=== PATIENT | male | born 1960 | race Hispanic/Latino ===

== ENCOUNTER 2018-01-19 13:00 | Emergency (ER) | payer MEDICAID ==
[2018-01-19 13:03] VITALS: BP 126/62; PULSE 72; RESP 18; TEMP 97.8; O2SAT 98; BMI 17.9
--- NOTE | 2018-01-19 13:31 | ED PDOC ---
Arrival/HPI - General Chief Complaint: Psychiatric Evaluation Time Seen by Provider: 01/19/18 13:04 Historian: Patient - History of Present Illness Narrative History of Present Illness (Text): 01/19/18 13:10 Ernesto Romero is a 57 year old male who presents to the emergency department requesting a psychiatric evaluation today. Patient states that he has been trying to get himself evaluated at a mental health clinic for clinical depression but cannot get anywhere. On the phone, patient asked if he has to kill himself to get the care he needs, prompting police and an ambulance sent to his house to bring him to the emergency department. In emergency department, patient refuses to be evaluated, change in dressing gowns, and be treated by medications. Patient denies any suicidal ideation, homicidal ideation, or any other complaints at this time. Time/Duration: Prior to Arrival Symptom Onset: Gradual Symptom Course: Unchanged Activities at Onset: Light Past Medical History - Provider Review Nursing Documentation Reviewed: Yes - Psychiatric Hx Substance Use: No - Anesthesia Hx Anesthesia: No Family/Social History - Physician Review Nursing Documentation Reviewed: Yes Family/Social History: No Known Family HX Smoking Status: Light Smoker < 10 Cigarettes Daily Hx Alcohol Use: No Hx Substance Use: No Review of Systems - Review of Systems Systems not reviewed;Unavailable: Uncooperative Physical Exam - Physical Exam Narrative Physical Exam (Text): Patient refuses to be evaluated. Vital Signs Reviewed: Yes Vital Signs Temp Pulse Resp BP Pulse Ox 01/19/18 13:02 97.8 F 72 18 126/62 98 Temperature: Afebrile Blood Pressure: Normal Pulse: Regular Respiratory Rate: Normal Pain Distress: None Mental Status: Positive for: Alert and Oriented X 3 Medical Decision Making ED Course and Treatment: 01/19/18 13:34 Impression: 57 year old male requesting a psychiatric evaluation for clinical depression. Progress Notes: Leaving Against Medical Advice (AMA): The patient is choosing to leave against medical advice. I have personally explained to the patient that choosing to do so may result in permanent bodily harm or . I have discussed at great length that without further evaluation and monitoring there may be unforeseen circumstances and/or deterioration causing permanent bodily harm or as a result of their choice. The patient is alert, oriented, and shows the mental capacity to make clear decisions regarding the patients health care at this time. The patient continues to wish to leave against medical advice. In light of the patients decision to leave against medical advice, follow-up has been arranged and the patient is aware of the importance to following up as instructed. The patient has been advised that they should return to the emergency room immediately if they change their mind at any time, or if their condition begins to change or worsen in any way. - Scribe Statement The provider has reviewed the documentation as recorded by the Carlosibsteven Doll Provider Scribe Attestation: All medical record entries made by the Scribe were at my direction and personally dictated by me. I have reviewed the chart and agree that the record accurately reflects my personal performance of the history, physical exam, medical decision making, and the department course for this patient. I have also personally directed, reviewed, and agree with the discharge instructions and disposition. Disposition/Present on Arrival - Present on Arrival Any Indicators Present on Arrival: No History of DVT/PE: No History of Uncontrolled Diabetes: No Urinary Catheter: No History of Decub. Ulcer: No History Surgical Site Infection Following: None - Disposition Have Diagnosis and Disposition been Completed?: Yes Diagnosis: Depression Disposition: AGAINST MEDICAL ADVICE Disposition Time: 13:35 Patient Plan: Discharge, Other (AMA) Condition: GOOD Discharge Instructions (ExitCare): Depression, Adult (DC) Forms: [employer] (Korean)
== END 2018-01-19 13:55 | disposition left against medical advice (07) ==
LOC: ED 13:00
DX: F32.9 Major depressive disorder, single episode, unspecified (principal)

== ENCOUNTER 2018-02-22 11:37 | Emergency (ER) | payer MEDICAID ==
--- NOTE | 2018-02-22 11:56 | ED PDOC ---
Arrival/HPI - General Time Seen by Provider: 02/22/18 11:53 Historian: Patient - History of Present Illness Narrative History of Present Illness (Text): 02/22/18 11:53 57 year old male, whose past medical history includes depression, who presents to the emergency department brought in by EMS for suicidal ideation. Patient states he was at the [facility] to get signed up for group therapy, when he admitted to past suicidal ideation. The [facility] called EMS. Patient now reporting that he is not suicidal. Denies homicidal ideation. Patient denies somatic complaints. Time/Duration: Prior to Arrival Context: Other ([facility]) Past Medical History - Provider Review Nursing Documentation Reviewed: Yes - Psychiatric Hx Substance Use: No - Anesthesia Hx Anesthesia: No Family/Social History - Physician Review Nursing Documentation Reviewed: Yes Family/Social History: Unknown Family HX Smoking Status: Light Smoker < 10 Cigarettes Daily Hx Alcohol Use: No Hx Substance Use: No Allergies/Home Meds Allergies/Adverse Reactions: Allergies No Known Allergies Allergy (Verified 02/22/18 11:58) Home Medications: Home Meds Medication Instructions Recorded Confirmed DiphenhydrAMINE [Benadryl] 25 mg PO DAILY 02/22/18 02/22/18 Review of Systems - Physician Review All systems were reviewed & negative as marked: Yes - Review of Systems Constitutional: Normal Eyes: Normal ENT: Normal Respiratory: Normal. absent: SOB, Cough Cardiovascular: Normal. absent: Chest Pain Gastrointestinal: Normal. absent: Abdominal Pain, Diarrhea, Nausea, Vomiting Genitourinary Male: Normal. absent: Dysuria, Frequency, Hematuria, Urinary Output Changes Musculoskeletal: Normal. absent: Back Pain, Neck Pain Skin: Normal. absent: Rash Neurological: Normal. absent: Headache, Dizziness Endocrine: Normal Hemo/Lymphatic: Normal Psychiatric: Normal Physical Exam Vital Signs Temp Pulse Resp BP Pulse Ox 02/22/18 13:42 98.9 F 88 18 136/87 99 - Systems Exam Head: Present: Atraumatic, Normocephalic Pupils: Present: PERRL Extroacular Muscles: Present: EOMI Conjunctiva: Present: Normal Mouth: Present: Moist Mucous Membranes Neck: Present: Normal Range of Motion. No: Meningeal Signs, MIDLINE TENDERNESS , Paraspinal Tenderness Respiratory/Chest: Present: Clear to Auscultation, Good Air Exchange. No: Respiratory Distress, Accessory Muscle Use, Wheezes, Decreased Breath Sounds, Rales Cardiovascular: Present: Regular Rate and Rhythm, Normal S1, S2. No: Murmurs Abdomen: No: Tenderness, Distention, Peritoneal Signs Back: Present: Normal Inspection. No: CVA Tenderness, Midline Tenderness, Paraspinal Tenderness Upper Extremity: Present: Normal Inspection. No: Cyanosis, Edema Lower Extremity: Present: Normal Inspection. No: Edema, CALF TENDERNESS Neurological: Present: GCS=15, CN II-XII Intact, Speech Normal Skin: Present: Warm, Dry, Normal Color. No: Rashes Psychiatric: Present: Alert, Oriented x 3, Normal Insight, Normal Concentration Medical Decision Making ED Course and Treatment: 02/22/18 11:57 Impression: 57 year old male presents to the emergency department brought in by EMS for medical clearance. Plan: -- Labs -- Urinalysis -- CXR -- Reassess and disposition Progress Notes: 02/22/18 12:53 Patient evaluated by PES worker. Recommending voluntary admission which patient is refusing. Patient now to be screened by [facility] for involuntary commitment. 02/22/18 13:29 Chest X-ray reviewed, shows: LUNGS: No active pulmonary disease. PLEURA: No significant pleural effusion identified, no pneumothorax apparent. CARDIOVASCULAR: Normal. OSSEOUS STRUCTURES: No significant abnormalities. VISUALIZED UPPER ABDOMEN: Normal. OTHER FINDINGS: None. IMPRESSION: No active disease. 02/22/18 14:28 EKG shows sinus bradycardia at 53bpm with RAD. Labs reviewed. Patient medically cleared for psychiatric evaluation 02/22/18 18:37 Patient continues to be resting comfortably on 1:1 monitoring. He is still pending [facility] screen. Will sign out to Dr. Henry to follow-up their recommendations. - Lab Interpretations Lab Results: 02/22/18 14:08 02/22/18 14:08 Lab Results 02/22/18 14:08: Alcohol, Quantitative < 10 02/22/18 14:08: Sodium 143, Potassium 4.1, Chloride 101, Carbon Dioxide 29, Anion Gap 17, BUN 16, Creatinine 1.0, Est GFR ( Amer) > 60, Est GFR (Non- Af Amer) > 60, Random Glucose 88, Calcium 10.0, Total Bilirubin 1.3, AST 34, ALT 41, Alkaline Phosphatase 57, Total Protein 8.0, Albumin 4.9 H, Globulin 3.2 , Albumin/Globulin Ratio 1.5 02/22/18 14:08: WBC 12.5 H, RBC 4.95, Hgb 16.0, Hct 44.8, MCV 90.5, MCH 32.3, MCHC 35.7, RDW 12.4, Plt Count 205, MPV 10.0, Gran % 77.3 H, Lymph % (Auto) 15.2 L, [place] % (Auto) 4.3, Eos % (Auto) 2.8, Baso % (Auto) 0.4, Gran # 9.63 H, Lymph # (Auto) 1.9, [place] # (Auto) 0.5, Eos # (Auto) 0.4, Baso # (Auto) 0.05 02/22/18 14:05: Urine Opiates Screen Negative, Urine Methadone Screen Negative, Ur Barbiturates Screen Negative, Ur Phencyclidine Scrn Negative, Ur Amphetamines Screen Negative, U Benzodiazepines Scrn Negative, U Oth Cocaine Metabols Negative, U Cannabinoids Screen Negative 02/22/18 14:05: Urine Color Yellow, Urine Appearance Clear, Urine pH 7.5, Ur Specific [place] 1.015, Urine Protein Negative, Urine Glucose (UA) Negative, Urine Ketones Trace H, Urine Blood Negative, Urine Nitrate Negative, Urine Bilirubin Negative, Urine Urobilinogen 0.2, Ur Leukocyte Esterase Negative - RAD Interpretation Radiology Orders: 02/22/18 12:46 CHEST PORTABLE [RAD] Stat - Scribe Statement The provider has reviewed the documentation as recorded by the Carlosibsteven Francisco All medical record entries made by the Carlosibsteven were at my direction and personally dictated by me. I have reviewed the chart and agree that the record accurately reflects my personal performance of the history, physical exam, medical decision making, and the department course for this patient. I have also personally directed, reviewed, and agree with the discharge instructions and disposition. Disposition/Present on Arrival - Present on Arrival Any Indicators Present on Arrival: No History of DVT/PE: No History of Uncontrolled Diabetes: No Urinary Catheter: No History Surgical Site Infection Following: None - Disposition Have Diagnosis and Disposition been Completed?: Yes Diagnosis: Depression Disposition Time: 18:45 Condition: FAIR Referrals: Loraine Man, [Primary Care Provider] - Follow up with primary
[2018-02-22 11:58] VITALS: BMI 19.5
--- NOTE | 2018-02-22 13:27 | RAD ---
HISTORY: psych COMPARISON: No prior. FINDINGS: LUNGS: No active pulmonary disease. PLEURA: No significant pleural effusion identified, no pneumothorax apparent. CARDIOVASCULAR: Normal. OSSEOUS STRUCTURES: No significant abnormalities. VISUALIZED UPPER ABDOMEN: Normal. OTHER FINDINGS: None. IMPRESSION: No active disease.
[2018-02-22 14:10] LABS: PH,URINE 7.5 (4.7-8.0); URINE BILIRUBIN NEGATIVE (NEGATIVE); URINE BLOOD NEGATIVE (NEGATIVE); URINE GLUCOSE (UA) NEGATIVE (NEGATIVE); URINE LEUKOCYTE ESTERASE NEGATIVE Leu/uL (NEGATIVE); URINE PROTEIN NEGATIVE mg/dL (<30 mg/dL); URINE UROBILINOGEN 0.2 E.U./dL (<1 E.U./dL)
[2018-02-22 14:12] LABS: URINE APPEARANCE CLEAR (CLEAR); URINE COLOR YELLOW (YELLOW)
[2018-02-22 14:15] LABS: BASO # 0.05 K/mm3 (0.0-2.0); BASO % 0.4 % (0.0-3.0); EOS # 0.4 (0.0-0.7); EOS % 2.8 % (1.5-5.0); GRAN # 9.63 (1.4-6.5); GRAN % 77.3 % (50.0-68.0); LYMPH # 1.9 (1.2-3.4); LYMPH % 15.2 % (22.0-35.0); MEAN CELL VOLUME 90.5 fl (80.0-105.0); MEAN CORPUSCULAR HEMOGLOBIN 32.3 pg (25.0-35.0); MEAN CORPUSCULAR HGB CONC 35.7 g/dl (31.0-37.0); MONO # 0.5 (0.1-0.6); MONO % 4.3 % (1.0-6.0); RBC 4.95 10^6/uL (3.5-6.1); RED CELL DISTRIBUTION WIDTH 12.4 % (11.5-14.5); WHITE BLOOD COUNT 12.5 10^3/ul (4.5-11.0)
[2018-02-22 14:24] LABS: ALB/GLOB RATIO 1.5 (1.1-1.8); ALBUMIN 4.9 g/dL (3.0-4.8); ALT/SGPT 41 U/L (7-56); AST/SGOT 34 U/L (17-59); BLOOD UREA NITROGEN 16 mg/dL (7-21); GFR AFRICAN-AMERICAN > 60; GFR NON-AFRICAN AMERICAN > 60
[2018-02-22 14:33] LABS: BARBITURATES, UR NEGATIVE (NEGATIVE); BENZODIAZEPINES, UR NEGATIVE (NEGATIVE); OPIATES, UR NEGATIVE (NEGATIVE); PHENCYCLIDINE, UR NEGATIVE (NEGATIVE)
[2018-02-22 18:48] VITALS: TEMP 98.1
--- NOTE | 2018-02-22 19:02 | ED PDOC ---
Physical Exam Vital Signs Reviewed: Yes Vital Signs Temp Pulse Resp BP Pulse Ox 02/22/18 18:47 98.1 F 82 19 99 02/22/18 13:42 98.9 F 88 18 136/87 99 Temperature: Afebrile Blood Pressure: Normal Pulse: Regular Respiratory Rate: Normal Appearance: Positive for: Well-Appearing Pain Distress: None Mental Status: Positive for: Alert and Oriented X 3 Medical Decision Making ED Course and Treatment: 02/22/18 19:01 Patient endorsed to me by Dr. Alvarez. Patient to have follow-up with [facility] screening. 02/22/18 19:27 [facility] came to evaluate patient. They do not feel like the patient qualifies for admission. Spoke to PES and they will reevaluate and disposition 02/22/18 19:33 TIARA Carrasco, came to evaluate patient and discussed case with Psychiatrist. They agreed that patient can be cleared by Psych. Patient if comfortable and currently not suicidal or homocidal. He will follow up with the [facility] and he understands that he's always welcome back with any concerns he may have. - Lab Interpretations Lab Results: 02/22/18 14:08 02/22/18 14:08 Lab Results 02/22/18 14:08: Alcohol, Quantitative < 10 02/22/18 14:08: Sodium 143, Potassium 4.1, Chloride 101, Carbon Dioxide 29, Anion Gap 17, BUN 16, Creatinine 1.0, Est GFR ( Amer) > 60, Est GFR (Non- Af Amer) > 60, Random Glucose 88, Calcium 10.0, Total Bilirubin 1.3, AST 34, ALT 41, Alkaline Phosphatase 57, Total Protein 8.0, Albumin 4.9 H, Globulin 3.2 , Albumin/Globulin Ratio 1.5 02/22/18 14:08: WBC 12.5 H, RBC 4.95, Hgb 16.0, Hct 44.8, MCV 90.5, MCH 32.3, MCHC 35.7, RDW 12.4, Plt Count 205, MPV 10.0, Gran % 77.3 H, Lymph % (Auto) 15.2 L, [place] % (Auto) 4.3, Eos % (Auto) 2.8, Baso % (Auto) 0.4, Gran # 9.63 H, Lymph # (Auto) 1.9, [place] # (Auto) 0.5, Eos # (Auto) 0.4, Baso # (Auto) 0.05 02/22/18 14:05: Urine Opiates Screen Negative, Urine Methadone Screen Negative, Ur Barbiturates Screen Negative, Ur Phencyclidine Scrn Negative, Ur Amphetamines Screen Negative, U Benzodiazepines Scrn Negative, U Oth Cocaine Metabols Negative, U Cannabinoids Screen Negative 02/22/18 14:05: Urine Color Yellow, Urine Appearance Clear, Urine pH 7.5, Ur Specific [place] 1.015, Urine Protein Negative, Urine Glucose (UA) Negative, Urine Ketones Trace H, Urine Blood Negative, Urine Nitrate Negative, Urine Bilirubin Negative, Urine Urobilinogen 0.2, Ur Leukocyte Esterase Negative - RAD Interpretation Radiology Orders: 02/22/18 12:46 CHEST PORTABLE [RAD] Stat - Scribe Statement The provider has reviewed the documentation as recorded by the Tayler Soni Provider Scribe Attestation: All medical record entries made by the Carlosibsteven were at my direction and personally dictated by me. I have reviewed the chart and agree that the record accurately reflects my personal performance of the history, physical exam, medical decision making, and the department course for this patient. I have also personally directed, reviewed, and agree with the discharge instructions and disposition. Disposition/Present on Arrival - Present on Arrival Any Indicators Present on Arrival: No History of DVT/PE: No History of Uncontrolled Diabetes: No Urinary Catheter: No History of Decub. Ulcer: No History Surgical Site Infection Following: None - Disposition Have Diagnosis and Disposition been Completed?: Yes Diagnosis: Depression, Suicidal ideation Disposition: HOME/ ROUTINE Disposition Time: 19:34 Patient Plan: Discharge Patient Problems: Current Active Problems Problem Status Onset Depression Acute Suicidal ideation Acute Condition: IMPROVED Discharge Instructions (ExitCare): Depression, When You Have Depression and Another Health Problem, Suicide Prevention Additional Instructions: Nick, thank you for letting us take care of you today. Your provider was Dr. Henry. You were treated for Depression, Suicidal Ideation. The emergency medical care you received today was directed at your acute symptoms. If you were prescribed any medication, please fill it and take as directed. It may take several days for your symptoms to resolve. Return to the Emergency Department if your symptoms worsen, do not improve, or if you have any other problems. Please contact your doctor or call one of the physicians/clinics you have been referred to that are listed on the Patient Visit Information form that is included in your discharge packet. Bring any paperwork you were given at discharge with you along with any medications you are taking to your follow up visit. Our treatment cannot replace ongoing medical care by a primary care provider (PCP) outside of the emergency department. Thank you for allowing the [facility] team to be part of your care today. If you had an X-Ray or CT scan: A Radiologist will review the ED reading if any change in treatment is needed we will contact you. If you had a blood, urine, or wound culture: It will take several days for the results, if any change in treatment is needed we will contact you. If you had an STI test: It will take 48 hours for the results. Please call after 1 week if you have not heard back. Referrals: [facility] [Outside] - Follow up with primary [facility] [Outside] - Follow up with primary [facility] Sunny Req, [Primary Care Provider] - Follow up with primary Forms: WORK NOTE
[2018-02-22 19:59] VITALS: BP 142/82; PULSE 88; RESP 16; O2SAT 100
--- NOTE | 2018-02-24 23:59 | CARD ---
APPROVED REPORT EKG Measurement Heart [id number] <Conclusion> Sinus bradycardia Rightward axis Borderline ECG
== END 2018-02-22 19:59 | disposition home or self-care (01) ==
LOC: ED 11:37
DX: F32.9 Major depressive disorder, single episode, unspecified (principal); R45.851 Suicidal ideations; F17.210 Nicotine dependence, cigarettes, uncomplicated

== ENCOUNTER 2018-03-28 14:53 | Inpatient (IN) | payer MEDICAID, OTHER ==
[2018-03-28 14:54] VITALS: BMI 19.5
[2018-03-28 15:18] VITALS: O2SAT 97
--- NOTE | 2018-03-28 15:31 | ED PDOC ---
Arrival/HPI - General Time Seen by Provider: 03/28/18 15:25 Historian: Patient - History of Present Illness Narrative History of Present Illness (Text): 03/28/18 15:26 This 57 yo male with pmh depression, presents to this ED for PES evaluation. Patient stated he was angry with someone who has been bothering for a while at the psych institution he attends. He stated he told the other person that he was going to kill him, his , his dog x 2 days. Denies other somatic complains. Time/Duration: Other (see hpi) Context: Other ([facility]) Past Medical History - Provider Review Nursing Documentation Reviewed: Yes - Cardiac Hx Cardiac Disorders: No Hx Hypertension: No - Pulmonary Hx Tuberculosis: No - Neurological HX Cerebrovascular Accident: No Hx Seizures: No - HEENT Hx HEENT Disorder: No - Renal Hx Renal Disorder: No - Endocrine/Metabolic Hx Endocrine Disorders: No - Hematological/Oncological Hx Cancer: No - Integumentary Hx Dermatological Disorder: No - Musculoskeletal/Rheumatological Hx Musculoskeletal Disorders: No - Gastrointestinal Hx Gastrointestinal Disorders: No - Genitourinary/Gynecological Hx Sexually Transmitted Diseases: No - Psychiatric Hx Substance Use: No - Anesthesia Hx Anesthesia: No Family/Social History - Physician Review Nursing Documentation Reviewed: Yes Family/Social History: Other (noncontributory) Smoking Status: Light Smoker < 10 Cigarettes Daily Hx Alcohol Use: No Hx Substance Use: No Allergies/Home Meds Allergies/Adverse Reactions: Allergies cat dander Allergy (Verified 03/29/18 00:17) ITCHING mold Allergy (Verified 03/29/18 00:17) ITCHING Home Medications: Home Meds Medication Instructions Recorded Confirmed DiphenhydrAMINE [Benadryl] 25 mg PO PRN PRN 02/22/18 03/29/18 Review of Systems - Review of Systems Constitutional: Normal. absent: Fatigue, Weight Change, Fevers Eyes: Normal ENT: Normal Respiratory: Normal Cardiovascular: Normal Gastrointestinal: Normal Genitourinary Male: Normal Musculoskeletal: Normal Skin: Normal Neurological: Normal Endocrine: Normal Hemo/Lymphatic: Normal Psychiatric: Normal, Depression, Other ((+) HI) Physical Exam Vital Signs Temp Pulse Pulse Resp BP Pulse Ox 03/28/18 22:45 51 L 18 03/28/18 15:08 98.6 F 62 18 114/74 97 Temperature: Afebrile Blood Pressure: Normal Pulse: Regular Respiratory Rate: Normal Appearance: Positive for: Well-Appearing, Non-Toxic, Comfortable Pain Distress: None Mental Status: Positive for: Alert and Oriented X 3 - Systems Exam Head: Present: Atraumatic, Normocephalic Pupils: Present: PERRL Extroacular Muscles: Present: EOMI Conjunctiva: Present: Normal Mouth: Present: Moist Mucous Membranes Neck: Present: Normal Range of Motion Respiratory/Chest: Present: Clear to Auscultation, Good Air Exchange. No: Respiratory Distress, Accessory Muscle Use Cardiovascular: Present: Regular Rate and Rhythm, Normal S1, S2. No: Murmurs Abdomen: No: Tenderness, Distention, Peritoneal Signs Back: Present: Normal Inspection Upper Extremity: Present: Normal Inspection. No: Cyanosis, Edema Lower Extremity: Present: Normal Inspection. No: Edema Neurological: Present: GCS=15, CN II-XII Intact, Speech Normal Skin: Present: Warm, Dry, Normal Color. No: Rashes Psychiatric: Present: Alert, Oriented x 3, Homicidal Ideation Medical Decision Making ED Course and Treatment: 03/28/18 20:02 PES screener spoke with Dr. Mera who agreed with plan for admission for Major Depression 03/28/18 20:03 Patient agreed with admission Re-evaluation Time: 20:03 Reassessment Condition: Re-examined, Improving,but remains with symptoms - Lab Interpretations Lab Results: 03/28/18 16:17 03/28/18 16:17 Lab Results 03/28/18 17:26: Urine Opiates Screen Negative, Urine Methadone Screen Negative, Ur Barbiturates Screen Negative, Ur Phencyclidine Scrn Negative, Ur Amphetamines Screen Negative, U Benzodiazepines Scrn Negative, U Oth Cocaine Metabols Negative, U Cannabinoids Screen Negative 03/28/18 17:26: Urine Color Yellow, Urine Appearance Clear, Urine pH 6.0, Ur Specific [place] <= 1.005, Urine Protein Negative, Urine Glucose (UA) Negative, Urine Ketones Negative, Urine Blood Negative, Urine Nitrate Negative, Urine Bilirubin Negative, Urine Urobilinogen 0.2, Ur Leukocyte Esterase Negative 03/28/18 16:17: Alcohol, Quantitative < 10 03/28/18 16:17: Salicylates < 1 L, Acetaminophen < 10.0 L 03/28/18 16:17: Sodium 138, Potassium 3.5 L, Chloride 100, Carbon Dioxide 26, Anion Gap 16, BUN 15, Creatinine 1.0, Est GFR ( Amer) > 60, Est GFR (Non- Af Amer) > 60, Random Glucose 105, Calcium 9.6, Magnesium 2.1, Total Bilirubin 0.9, AST 30, ALT 30, Alkaline Phosphatase 40, Total Protein 7.5, Albumin 4.7, Globulin 2.8, Albumin/Globulin Ratio 1.7 03/28/18 16:17: WBC 7.7 D, RBC 4.25, Hgb 13.8 L D, Hct 38.7 L, MCV 91.1, MCH 32.5, MCHC 35.7, RDW 11.9, Plt Count 194, MPV 10.4, Gran % 57.4, Lymph % (Auto) 30.2, [place] % (Auto) 6.6 H, Eos % (Auto) 5.2 H, Baso % (Auto) 0.6, Gran # 4.42, Lymph # (Auto) 2.3, [place] # (Auto) 0.5, Eos # (Auto) 0.4, Baso # (Auto) 0.05 I have reviewed the lab results: Yes Interpretation: No clinic. lab abnormalty - RAD Interpretation Radiology Orders: 03/28/18 15:35 CHEST PORTABLE [RAD] Stat - EKG Interpretation Interpreted by ED Physician: Yes Type: 12 lead EKG Comparison: No previous EKG avail. - Medication Orders Current Medication Orders: Acetaminophen (Tylenol 325mg Tab) 650 mg PO Q6H PRN PRN Reason: Pain, moderate (4-7) Al Hydrox/Mg Hydrox/Simethicone (Maalox Plus 30 Ml) 30 ml PO DAILY PRN PRN Reason: Indigestion / Heartburn Bupropion HCl (Wellbutrin) 75 mg PO DAILY RANDY Last Admin: 03/30/18 08:58 Dose: Not Given Non-Admin Reason: Patient Refused Magnesium Hydroxide (Milk Of Magnesia) 30 ml PO DAILY PRN PRN Reason: Constipation Quetiapine Fumarate (Seroquel) 12.5 mg PO HS RANDY PRN Reason: Protocol Last Admin: 03/29/18 21:23 Dose: Not Given Non-Admin Reason: Patient Refused Behavioural Document 03/29/18 21:23 DC (Rec: 03/29/18 21:24 DC [id number]) Maintenance Maintenance Dose Yes Zaleplon (Sonata) 5 mg PO HS PRN PRN Reason: Insomnia Ziprasidone (Geodon Inj) 10 mg IM Q6H PRN; Protocol PRN Reason: agiation Disposition/Present on Arrival - Present on Arrival Any Indicators Present on Arrival: No History of DVT/PE: No History of Uncontrolled Diabetes: No Urinary Catheter: No History Surgical Site Infection Following: None - Disposition Have Diagnosis and Disposition been Completed?: Yes Diagnosis: Major depression Disposition: HOSPITALIZED Disposition Time: 20:04 Patient Plan: Admission Patient Problems: Current Active Problems Problem Status Onset Major depression Acute Condition: STABLE
[2018-03-28 16:32] LABS: ACETAMINOPHEN < 10.0 ug/ml (10.0-20.0); ALB/GLOB RATIO 1.7 (1.1-1.8); ALBUMIN 4.7 g/dL (3.0-4.8); ALT/SGPT 30 U/L (7-56); AST/SGOT 30 U/L (17-59); BLOOD UREA NITROGEN 15 mg/dL (7-21); CALCIUM 9.6 mg/dL (8.4-10.5); GFR AFRICAN-AMERICAN > 60; GFR NON-AFRICAN AMERICAN > 60; SALICYLATE < 1 mg/dL (2.0-20.0)
[2018-03-28 17:07] LABS: HEMOGLOBIN 13.8 g/dL (14.0-18.0); MEAN CELL VOLUME 91.1 fl (80.0-105.0); RBC 4.25 10^6/uL (3.5-6.1); WHITE BLOOD COUNT 7.7 10^3/ul (4.5-11.0)
[2018-03-28 17:08] LABS: BASO # 0.05 K/mm3 (0.0-2.0); BASO % 0.6 % (0.0-3.0); EOS # 0.4 (0.0-0.7); EOS % 5.2 % (1.5-5.0); GRAN # 4.42 (1.4-6.5); GRAN % 57.4 % (50.0-68.0); LYMPH # 2.3 (1.2-3.4); LYMPH % 30.2 % (22.0-35.0); MEAN CORPUSCULAR HEMOGLOBIN 32.5 pg (25.0-35.0); MEAN CORPUSCULAR HGB CONC 35.7 g/dl (31.0-37.0); MEAN PLATELET VOLUME 10.4 fl (7.0-11.0); MONO # 0.5 (0.1-0.6); MONO % 6.6 % (1.0-6.0); RED CELL DISTRIBUTION WIDTH 11.9 % (11.5-14.5)
[2018-03-28 17:37] LABS: URINE BILIRUBIN NEGATIVE (NEGATIVE); URINE BLOOD NEGATIVE (NEGATIVE); URINE GLUCOSE (UA) NEGATIVE (NEGATIVE); URINE LEUKOCYTE ESTERASE NEGATIVE Leu/uL (NEGATIVE); URINE PROTEIN NEGATIVE mg/dL (<30 mg/dL); URINE UROBILINOGEN 0.2 E.U./dL (<1 E.U./dL)
[2018-03-28 17:47] LABS: URINE APPEARANCE CLEAR (CLEAR); URINE COLOR YELLOW (YELLOW)
[2018-03-28 17:54] LABS: BARBITURATES, UR NEGATIVE (NEGATIVE); BENZODIAZEPINES, UR NEGATIVE (NEGATIVE); OPIATES, UR NEGATIVE (NEGATIVE); PHENCYCLIDINE, UR NEGATIVE (NEGATIVE)
--- NOTE | 2018-03-28 18:25 | RAD ---
HISTORY: PES eval COMPARISON: Chest radiograph dated 02/22/2018 FINDINGS: LUNGS: No active pulmonary disease. PLEURA: Stable eventration of the right hemidiaphragm. No significant pleural effusion identified, no pneumothorax apparent. CARDIOVASCULAR: Normal. OSSEOUS STRUCTURES: Unchanged. VISUALIZED UPPER ABDOMEN: Normal. OTHER FINDINGS: None. IMPRESSION: No active disease.
[2018-03-29] MEDS ORDERED: Magnesium Hydroxide Susp 30 ml UD PO PRN (00:02)
[2018-03-29] MEDS ORDERED: Alum-Mag Hydrox-Simethicone Susp (30 mL) PO PRN (00:02)
--- NOTE | 2018-03-29 00:42 | PCM.BM ---
<RoccoDakota - Last Filed: 03/29/18 00:38> Treatment Plan Problems - Problems identified on initial assessmt Ineffective Coping Date Initiated: 03/28/18 Time Initiated: 22:45 Assessment reference: NA Status: Active Priority: 1 Feelings of Worthlessness Date Initiated: 03/28/18 Time Initiated: 22:45 Assessment reference: NA Status: Active Priority: 2 Altered Sleep Patterns Date Initiated: 03/28/18 Time Initiated: 22:45 Assessment reference: NA Status: Active Priority: 3 Social Isolation Date Initiated: 03/28/18 Time Initiated: 22:45 Assessment reference: NA Status: Active Priority: 4 Treatment assets and liabiliti Patient Assests: cooperative, educated, insightful, self-reliant, ADL independent, physically healthy, negotiates basic needs, cognitively intact, good interpersonal skills Patient Liabilities: live alone, financial problems, poor support system, relationship conflicts - Milieu Protocol Maintain good personal hygiene: daily Encourage regular showers, every shift Remind patient to perform daily oral care, every shift Assist patient to perform ADL's Maintain personal safety: every shift Educate patient to report safety concerns to staff, every shift Monitor environment for contraband/sharps Medication safety: Monitor for expected outcome, potential side effects: every shift, Assess barriers to learning: every shift, Assess readiness for medication education: every shift Family Contact Family involvement: Famliy/SO not involved Family contact: Patient declines to allow family contact at present - Goals for Treatment Patient goals for treatment: "I didn't do anything- I wanted to sleep in my own bed tonight and get better on my own." Discharge/Continuing Care - Education Needs Education Needs: Patient Medication, Patient Diagnosis/Disease Process, Patient Coping Skills, Patient Anger Management skills, Patient Placement options, Patient Community resources, Patient Activities of Daily Living, Patient Nutrition, Patient Health Practices/Safety, Patient Personal Hygiene/Grooming, Patient Aftercare Safety Plan - Discharge Discharge Criteria: Free of agitation, Normal sleep pattern <Davis Munson Jr. - Last Filed: 04/01/18 10:33> Family Contact - Outside Agency Agency 1 Care involvment: Other Agency contact name: [facility] Agency contact number:
[2018-03-29 07:39] LABS: GLUCOSE,FASTING 94 mg/dL (65-110); HDL CHOLESTEROL 83 mg/dL (29-60)
[2018-03-29 07:50] LABS: LDL CHOLESTEROL 66 mg/dL (0-129)
--- NOTE | 2018-03-29 09:42 | CARD ---
APPROVED REPORT EKG Measurement Heart [id number] <Conclusion> Marked sinus bradycardia NSSTW changes
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
[2018-03-30 07:05] VITALS: RESP 20
--- NOTE | 2018-03-30 08:56 | PCM.PYCHPN ---
Psychiatric Progress Note - Psychiatric Progress Note Patient seen today, length of contact: 25 min Patient Chief Complaint: "fine" Problems Identified/Issues Discussed: I reviewed assessment and recent notes. I met with patient in the dayroom. He is alert, groomed, and well-oriented to month, year, location and circumstances. He cooperates with my questioning and reports that he is "fine". He seems a little labile but in good behavioral control. Denies any thoughts to harm himself or others. Indicates that the statements that led to this admission were made in poor judgment but "obviously a joke, I mentioned the pot pie, I obviously wasn't serious!". Admits he can be impulsive and allan but maintains his comments were taken too seriously. Patient still refuses to take wellbutrin until he learns more about the medication. He is friendly and coherent. He denies hallucinations and responses are focused and relevant. Staff notes indicate that he has been visible on the unit and social with select peers. He also participates in groups. There were no behavioral problems overnight. Diagnostic Results: rule out major depressive disorder rule out bipolar type II Rule out pathological grief Rule out adjustment disorder with depressed and anxious mood Mental Status Examination - Cognitive Function Orientation: Person, Place Attention: WNL - Mood Mood: Depressed ("fine"), Anxious - Affect Affect: Constricted (And tearful) - Formal Thought Process Formal Thought Process: No Impairment - Suicidal Ideation Suicidal Ideation: No - Homicidal Ideation Homicidal Ideation: No Goal/Treatment Plan - Goal/Treatment Plan Progress Toward Problem(s) and Goals/Treatment Plan: * c/w current tx and plan * No new floor lab results today * Vitals reviewed and noted below: Selected Entries 03/30/18 07:04 Temperature 97.1 F L Pulse Rate 59 L Respiratory 20 Rate Blood Pressure 96/68 L
--- NOTE | 2018-03-31 13:27 | PCM.PYCHPN ---
Psychiatric Progress Note - Psychiatric Progress Note Patient seen today, length of contact: 30min Patient Chief Complaint: "I do not need to have medication patient information print out, I need to know exactly what pathways medication working" Problems Identified/Issues Discussed: Suicide/ homicide prevention, past psychiatric h/o, current psychiatric symptoms , medical problems, risk/benefits and alternatives of medications, medications compliance, coping strategies, substance abuse h/o, relapse prevention, importance of follow up with psychiatrist and therapist, discharge plan. Medical Problems: denied medical issues. Diagnostic Results: 03/28/18 16:17 03/28/18 16:17 Lab Results 03/29/18 07:00: RPR Nonreactive 03/29/18 07:00: TSH 3rd Generation 2.67 03/29/18 07:00: Fasting Glucose 94, Triglycerides 57, Cholesterol 166, LDL Cholesterol Direct 66, HDL Cholesterol 83 H 03/28/18 17:26: Urine Opiates Screen Negative, Urine Methadone Screen Negative, Ur Barbiturates Screen Negative, Ur Phencyclidine Scrn Negative, Ur Amphetamines Screen Negative, U Benzodiazepines Scrn Negative, U Oth Cocaine Metabols Negative, U Cannabinoids Screen Negative 03/28/18 17:26: Urine Color Yellow, Urine Appearance Clear, Urine pH 6.0, Ur Specific [place] <= 1.005, Urine Protein Negative, Urine Glucose (UA) Negative, Urine Ketones Negative, Urine Blood Negative, Urine Nitrate Negative, Urine Bilirubin Negative, Urine Urobilinogen 0.2, Ur Leukocyte Esterase Negative 03/28/18 16:17: Alcohol, Quantitative < 10 03/28/18 16:17: Salicylates < 1 L, Acetaminophen < 10.0 L 03/28/18 16:17: Sodium 138, Potassium 3.5 L, Chloride 100, Carbon Dioxide 26, Anion Gap 16, BUN 15, Creatinine 1.0, Est GFR ( Amer) > 60, Est GFR (Non- Af Amer) > 60, Random Glucose 105, Calcium 9.6, Magnesium 2.1, Total Bilirubin 0.9, AST 30, ALT 30, Alkaline Phosphatase 40, Total Protein 7.5, Albumin 4.7, Globulin 2.8, Albumin/Globulin Ratio 1.7 03/28/18 16:17: WBC 7.7 D, RBC 4.25, Hgb 13.8 L D, Hct 38.7 L, MCV 91.1, MCH 32.5, MCHC 35.7, RDW 11.9, Plt Count 194, MPV 10.4, Gran % 57.4, Lymph % (Auto) 30.2, [place] % (Auto) 6.6 H, Eos % (Auto) 5.2 H, Baso % (Auto) 0.6, Gran # 4.42, Lymph # (Auto) 2.3, [place] # (Auto) 0.5, Eos # (Auto) 0.4, Baso # (Auto) 0.05 Vital Signs Temp Pulse Pulse Resp BP Pulse Ox 03/31/18 07:08 97.7 F 59 L 20 106/61 03/30/18 15:51 70 97/68 L 03/30/18 07:04 97.1 F L 59 L 20 96/68 L 03/29/18 22:29 106/71 03/29/18 15:00 55 L 106/71 03/29/18 06:57 98.4 F 54 L 16 95/64 L 03/28/18 22:45 51 L 18 03/28/18 15:08 98.6 F 62 18 114/74 97 DSM 5 Symptoms Update: shortly patient is 57 years old male, currently unemployed, patient denied previous psychiatric admissions, denied history of suicidal attempts, denied history of any legal problems, patient was referred by [facility] clinician for evaluation of depressive symptoms, inability to function, patient also was making threats towards he is friend that he is going to harm him and his family, patient requires further evaluation and stabilization and medication management. Patient was seen and examined today at the morning time at the treatment team meeting. Patient presented with acceptable personal hygiene, looks much older than his chronological age, good ADLs. pt was refusing to take medications even print out was provided to the pt. pt has poor reality testing, was not functioning in the community, was making threats in the community. as per clinician Annamarie at [facility] pt was hoarding things, was not functioning, was grandiose, thought that bachelor degree in biology gives him enough medical knowledge to challenge medications he prescribed. as per staff pt is not agitated or aggressive, at times tearful. pt has no family or friends, was not working. will call screening [facility] for involuntary commitment DSM 5 Diagnosis: rule out major depressive disorder rule out bipolar type II Rule out pathological grief Rule out adjustment disorder with depressed and anxious mood Medication Change: No (pt was refusing to take meds) Medical Record Reviewed: Yes Consults ordered or reviewed: no pt was seen by physician in ED Mental Status Examination - Cognitive Function Orientation: Person, Place Attention: WNL Concentration: Poor Association: Loose Fund of Knowledge: WNL - Mood Mood: Depressed ("fine"), Anxious - Affect Affect: Constricted (And tearful) - Formal Thought Process Formal Thought Process: No Impairment - Suicidal Ideation Suicidal Ideation: No - Homicidal Ideation Homicidal Ideation: No Goal/Treatment Plan - Goal/Treatment Plan Need for Continued Stay: Remain at risks for inpatient hospitalization, Severe depression anxiety, Discharge may exacerbated symptoms, Severe functional impairment Progress Toward Problem(s) and Goals/Treatment Plan: Milieu/structure/supportive therapy Medical consult if it is indicated SW consultation for discharge plan and social issues Med management Wellbutrin 75 mg by mouth daily for depression Seroquel 12.5 mgby mouth at the nighttime for stabilization and possible grandiosity Family involvement Follow up on labs Will monitor closely Pt was educated about risk/benefits and alternatives of medications, coping strategies (safety plan, suicide prevention), relapse prevention, importance of follow up with psychiatrist and therapist, stay away from drugs/alcohol/smoking pt was refusing meds, not functioning pt will be screened by [facility] Estimated Date of D/C: 04/05/18
[2018-04-01 06:40] VITALS: BP 91/58; PULSE 62; TEMP 98.1
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
== END 2018-04-01 12:42 | disposition left against medical advice (07) | DRG 427 ==
LOC: ED 14:53 → ERH 20:04 → PSYC 22:28
PROVIDERS: ADMIT Psychiatry & Neurology Psychiatry; ATTEND Psychiatry & Neurology Psychiatry
DX: F43.23 Adjustment disorder with mixed anxiety and depressed mood (principal); F41.1 Generalized anxiety disorder